=== PATIENT | female | born 1985 | race Hispanic/Latino ===

== ENCOUNTER 2016-09-29 02:48 | Emergency (ER) | payer SELFPAY ==
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
[2016-09-29 05:40] VITALS: BP 130/78; PULSE 97; RESP 18; TEMP 97.5
[2016-09-29 06:14] VITALS: O2SAT 95
== END 2016-09-29 05:33 | disposition home or self-care (01) ==
LOC: MERGE 02:48 → C.ER 02:48
DX: S00.03XA Contusion of scalp, initial encounter (principal); S00.83XA Contusion of other part of head, initial encounter; S80.01XA Contusion of right knee, initial encounter; Y09 Assault by unspecified means; F10.129 Alcohol abuse with intoxication, unspecified; Y90.9 Presence of alcohol in blood, level not specified

== ENCOUNTER 2018-04-23 16:52 | Emergency (ER) | payer MEDICAID ==
[2018-04-23 17:03] VITALS: BMI 31.6
--- NOTE | 2018-04-23 17:34 | C.PDOC ---
History Of Present Illness 33 y/o female,w/PMhx of HTN, presents to the ER complaining right foot pain which has been present for the past 1.5 weeks after feeling a "pop" while walking. Patient describes the pain as sharp and the pain is mainly in the lateral aspect and heel of the right foot. Patient reports that the pain is only present when she is bearing weight and ambulating, worst in the morning. Of note, patient states that she had partially torn achilles tendon on right ankle approx 1 year ago for which she followed up with a podiatry clinic, she did not have surgery at the time. She notes that she does not currently have an orthopedist and/or a sales contracts analyst. She has not taken any medications for the pain. Denies having trauma, injuries, weakness, numbness, parasthesias, ankle pain, and knee pain. Chief Complaint (Nursing): Lower Extremity Problem/Injury History Per: Patient History/Exam Limitations: no limitations Onset/Duration Of Symptoms: Days Current Symptoms Are (Timing): Still Present Severity: Moderate Past Medical History Reviewed: Historical Data, Nursing Documentation, Vital Signs Vital Signs: Last Vital Signs Temp 99.0 F 04/23/18 17:03 Pulse 86 04/23/18 17:03 Resp 17 04/23/18 17:03 BP 126/85 04/23/18 17:03 Pulse Ox 97 04/23/18 17:03 - Medical History PMH: HTN Other Surgeries: Hx of surgeries - [facility] Procedures OTHER SKIN & SUBQ I D (01/15/14) TETANUS TOXOID ADMINIST (01/15/14) Family History: States: No Known Family Hx - Social History Hx Tobacco Use: Yes Hx Alcohol Use: Yes Hx Substance Use: No - Immunization History Hx Tetanus Toxoid Vaccination: Yes Hx Influenza Vaccination: No Hx Pneumococcal Vaccination: No Review Of Systems Except As Marked, All Systems Reviewed And Found Negative. Constitutional: Negative for: Fever, Chills Eyes: Negative for: Pain, Vision Change Cardiovascular: Negative for: Chest Pain, Palpitations Respiratory: Negative for: Cough, Shortness of Breath Gastrointestinal: Negative for: Nausea, Vomiting, Abdominal Pain Musculoskeletal: Positive for: Foot Pain (right foot pain). Negative for: Back Pain, Leg Pain Skin: Negative for: Rash, Lesions, Bruising Neurological: Negative for: Weakness, Numbness, Headache, Dizziness Physical Exam - Physical Exam Appears: Well, Non-toxic, No Acute Distress Skin: Normal Color, Warm, Dry Head: Atraumatic, Normacephalic Eye(s): bilateral: Normal Inspection, PERRL, EOMI Nose: Normal Oral Mucosa: Moist Neck: Supple Chest: Symmetrical Extremity: Normal ROM, Tenderness (mild tenderness over right lateral foot inferior to malleolus), No Pedal Edema, No Calf Tenderness, Capillary Refill (<2s), No Deformity, No Swelling Extremity: Bilateral: Atraumatic, No Pedal Edema, Normal Color And Temperature, Normal ROM Pulses: Left Dorsalis Pedis: Normal, Right Dorsalis Pedis: Normal Neurological/Psych: Oriented x3, Normal Speech, Normal Cognition, Normal Cranial Nerves, Normal Motor, Normal Sensation Gait: Steady ED Course And Treatment O2 Sat by Pulse Oximetry: 97 (RA) Pulse Ox Interpretation: Normal Medical Decision Making Medical Decision Making: Initial Plan: * XR Right Foot * Podiatry Consult * Ibuprofen XR Right Foot: No acute fracture or dislocation; mild hallux valgus deformity Podiatry resident Rolando Middleton reviewed Xrays and evaluated patient at bedside. Educated patient on symptoms of plantar fasciitis and recommended followup with sales contracts analyst Dr. Payton at her office. Suggested that patient rest and stay off of her feet for the next few days. Gave patient JOSE DAVID bandage. Plan of care discussed with patient, and strict instructions given regarding importance of follow up, and signs to return to Emergency Department, to include difficulty walking, worsening pain, or any other new/worsening symptoms. Patient verbalizes understanding of discussion. Patient A&Ox3, ambulating with steady gait, stable for discharge home. Impression: Right foot pain Plan: * Ibuprofen/tylenol for pain * Rest painful foot, no strenuous activity * Keep foot compressed in JOSE DAVID bandage * Followup with Dr. Payton, podiatry within 2 days * Return to ER for new/worsening symptoms Disposition - Disposition Referrals: Gracy Rodriguez DPM [Staff Provider] - Disposition: HOME/ ROUTINE Disposition Time: 18:30 Condition: IMPROVED Additional Instructions: Ibuprofen/tylenol for pain Stay off your feet as much as possible Keep foot compressed in JOSE DAVID bandage Followup with Dr. Rodriguez, podiatry as directed Followup with clinic as needed Return to ER for new/worsening symptoms Instructions: Plantar Fasciitis Exercises Forms: [facility] (Burkinan), Work Excuse - Clinical Impression Clinical Impression: Foot pain - PA / [employer]ATE INST[employer]ER / Resident Statement MD/DO has reviewed & agrees with the documentation as recorded. - Scribe Statement The provider has reviewed the documentation as recorded by the Scribe Laverne Rock Provider Attestation All medical record entries made by the Gisellaibe were at my direction and personally dictated by me. I have reviewed the chart and agree that the record accurately reflects my personal performance of the history, physical exam, medical decision making, and the department course for this patient. I have also personally directed, reviewed, and agree with the discharge instructions and disposition.
[2018-04-23 18:58] VITALS: BP 136/92; PULSE 67; RESP 18; TEMP 97.8
--- NOTE | 2018-04-23 19:02 | RAD ---
Date of service: 04/23/2018 PROCEDURE: Right Foot Radiographs. HISTORY: foot pain COMPARISON: None. FINDINGS: BONES: No acute fracture or destructive bony lesion identified. JOINTS: Mild hallux valgus deformity appreciated. SOFT TISSUES: Normal. OTHER FINDINGS: None. IMPRESSION: Mild hallux valgus deformity. No acute fracture or dislocation identified.
[2018-04-23 22:46] VITALS: O2SAT 97
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
== END 2018-04-23 19:15 | disposition home or self-care (01) ==
LOC: C.ER 16:52
DX: M79.671 Pain in right foot (principal); I10 Essential (primary) hypertension; F17.210 Nicotine dependence, cigarettes, uncomplicated